=== PATIENT | male | born 1955 | race Caucasian/White ===

== ENCOUNTER 2024-10-17 15:30 | Outpatient (AMB) | payer OTHER, SELFPAY ==
--- NOTE | 2024-10-17 15:35 | AM.OFFWIN_ITS ---
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 He does wear contacts daily. Patient Tobacco Use Status: Former Tobacco user Allergies No Known Allergies Allergy (Verified 10/17/24 15:37) Do you need a note to return to daycare/school/sports/work: No HPI HPI Comments History of Present Illness Details History of Present Illness - The patient is a 69-year-old male pres enting with irritation and visual disturbance in the right eye. - Symptoms began a week ago and are paola acterized by irritation rather than pain and a decrease in visual sharpness. - He reports difficulty removing contact lenses over the past week, which tend to adhere more to the right eye and noticed increased watering. - There is no presence of purulent disch arge or crusting. - The patient uses weekly contact lenses , consistently discarding them at the end of each week. Physical Exam General: Cooperative, healthy appearing, comfortable, no acute distress and well developed Orientation: Patient oriented x3 Limitations: No limitations Head: Normal to inspection Ears: Hearing grossly normal bilaterally Nose: Normal Nxternal nose present Face and sinus: ormal facial exam Eyes: injection and watering noted in the right eye. corneal abrasion one centimeter in size, inferior pupil from 5 o'clock to 7 o'clock. Neck: Normal visual inspection and Yes full ROM Respiratory: Normal respiratory effort and able to speak in complete sentences Skin: No rashes or lesions noted Neuro: Patient oriented x3 Extremities: Normal to inspection [facility] Social History Patient Tobacco Use Status: Former Tobacco user Review of Systems Const All systems reviewed & are unremarkable except as noted in HPI and below Physical Exam Vital Signs: Last Vital Signs Pulse 54 10/17/24 15:36 BP 132/80 10/17/24 15:36 Pulse Ox 97 10/17/24 15:36 Oxygen Delivery Method Room Air 10/17/24 15:36 Office Procedures Fluorescein eye exam Details: applied 2 drops of tetracaine numbing eye drops, used fluroscein eye dye to rev eal corneal abrasion, right eye, inferior to pupil, 1cm swath approx 5-7o'clock Assessment & Plan Assessment & Plan (1) Corneal abrasion, right: Code(s): S05.01XA - Injury of conjunctiva and corneal abrasion without foreign body, right eye, initial encounter Qualifiers: Encounter type: initial encounter Qualified Code(s): S05.01XA - Injury of conjunctiva and corneal abrasion without foreign body, right eye, initial encounter Plan: The visit revealed and addressed a corneal abrasion in the right eye, possibly linked to contact lens use. I will prescribe Ocuflox ophthalmic drops, which the patient should use as directed, during waking hours. This regimen is chosen for contact lens users to prevent infection. The patient should abstain from using contact lenses during the seven-day treatment period and only resume their use after symptoms are resolved. Proper administration of medication and the expected dye drainage were explained. Following symptom resolution, the patient should switch to a fresh pair of contact lenses. Continuous monitoring is suggested to ensure healing and avoid complications. Any changes in vision or worsening of symptoms, the patient should follow up with his Assistant Sales Director or the Emergency Department. Patient was informed and verbally consented to the use of an ambient scribe for clinic note documentation during this visit. Medications: New ofloxacin 0.3% (Ocuflox) put 1-2 drps into affected eye(s) every 2-4 h x 2 days, then 1-2 drps 4 times/day days 3-7 ophthalmic-Right 10 mL 0RF Coding Level of Care Code New Pt Level 3 (26181) Diagnoses Abrasion of right cornea, initial encounter S05.01XA Encounter type: initial encounter
[2024-10-17 15:36] VITALS: BP 132/80; PULSE 54; O2SAT 97
--- OUTSIDE RECORDS SUMMARY | 2024-10-17 18:50 | XMS_ITS | Clinical Summary ---
Author Organization [facility] Address [address] [place] [address] Care Team Providers Care Clinical Tech Name Role Phone Unavailable Primary Care Provider Unavailabl e Social History Tobacco Use Types Packs/Day Years Used Date Smoking Tobacco: Never Assessed Sex and Gender Information Value Date Recorded Sex Assigned at Not on file Gender Identity Not on file Sexual Orientation Not on file Plan of Treatment Not on file
--- OUTSIDE RECORDS SUMMARY | 2024-10-17 18:50 | XMS_ITS | Encounter Summary ---
Author Organization [facility] Address [address] [place] [address] Care Team Providers Care Doctorate Of Chiropractic Name Role Phone Unavailable Primary Care Provider Unavailabl e Encounter Details Date Type Department Care Team (Late st Contact Info) Description 09/19/[address] [place] [address] Bolivar Millan MD [address], [place] [id number] Encounter for laboratory testing for COVID-19 virus Social History Tobacco Use Types Packs/Day Years Used Date Smoking Tobacco: Never Assessed Sex and Gender Information Value Date Recorded Sex Assigned at Not on file Gender Identity Not on file Sexual Orientation Not on file documented as of this encounter Plan of Treatment Not on file documented as of this encounter Procedures Procedure Name Priority Date/Time Associated Diagnosis Comments COVID-19 (SARS-COV-2) - [facility] Routine 09/19/2020 3:40 PM EST Encounter for laboratory testing for COVID-19 virus [ICD-10-CM] documented in this encounter Results * COVID-19 (SARS-COV-2) ([facility]) (09/19/2020 3:40 PM EST) COVID-19 RT-PCR NOT-DETEC PAMELA Not-Detec pamela 09/20/2020 9:33 PM EST [facility] Comment:Interpretation: The viral RNA was not detected, making the COVID-19 diagnosis less likely. Clinical correlation is highly recommended.Final report signed by Susana Pedroza, Ph.D., Laboratory DirectorTests performed at [facility] Nasopharyngeal swab / Unknown 09/19/2020 3:40 PM EST 09/19/2020 3:40 PM EST Narrative TYSHAWN CHAPA - 09/20/2020 9:33 PM EST Performed by [facility] [employer] [address] [place] [address], CLIA# [id number] and [place] License# [id number] Bolivar Millan MD MICROBIOLOGY - GENER AL ORDERABLES Performing Organization Address City/State/[facility] Co de Phone Number TYSHAWN BENJAMIN Anna Marie CHAPA documented in this encounter Visit Diagnoses Diagnosis Encounter for laboratory testing for COVID-19 virus documented in this encounter
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
--- OUTSIDE RECORDS SUMMARY | 2024-10-17 18:50 | XMS_ITS | Clinical Summary ---
Author Organization [facility] Address [address] [place] [address] Care Team Providers Care Director Long Term Care Name Role Phone Unavailable Primary Care Provider Unavailabl e Social History Tobacco Use Types Packs/Day Years Used Date Smoking Tobacco: Never Assessed Sex and Gender Information Value Date Recorded Sex Assigned at Not on file Gender Identity Not on file Sexual Orientation Not on file Plan of Treatment Health Maintenance Due Date Last Done Comments Hepatitis C Virus Screening 1955 DTaP/Tdap/Td Vaccines (1 - Tdap) 1975 Pneumococcal Vaccines 50+ (1 of 1 - PCV) 2006 Zoster (Shingles) Vaccine (1 of 2) 2006 COVID-19 Vaccine ( - 2023-2 5 season) 2024 RSV Vaccine 60 years and old er and Patients (1 - 1-dose 75+ series) 2031 Hepatitis B Vaccines Aged Out No long er eligible based on patient's age to complete this topic
== END 2024-10-17 16:35 | disposition home or self-care (01) ==
PROVIDERS: PCP Nurse Practitioner Family; Visit Provider Physician Assistant
DX: S05.01XA Injury of conjunctiva and corneal abrasion without foreign body, right eye, initial encounter (principal)

== ENCOUNTER → 2024-10-17 15:30 | Outpatient (BNVA) | payer OTHER, SELFPAY | PROVIDERS: PCP Nurse Practitioner Family ==

== ENCOUNTER → 2025-08-16 14:37 | Outpatient (BNV) | payer OTHER, SELFPAY | PROVIDERS: PCP Nurse Practitioner Family; Visit Provider Radiology Diagnostic Radiology | DX: J18.1 Lobar pneumonia, unspecified organism (principal) | CPT/HCPCS: 71046 ==